=== PATIENT | male | born 1975 | race African-American/Black ===

== ENCOUNTER 2018-02-08 09:09 | Emergency (ER) | payer OTHER ==
[~2018-02-08] VITALS: Ht 167.6 cm; Wt 83.9 kg
[2018-02-08] MEDS ORDERED: ONDANSETRON PF 4 MG/2 ML VIAL. IV ONE (09:30)
[2018-02-08] MEDS ORDERED: MORPHINE SULFATE 4 MG/ML VIAL. IV ONE (09:30)
[2018-02-08] MEDS ORDERED: IV NORMAL SALINE 1000ML BAG 1,000 ML IV ONE (09:30)
[2018-02-08 09:40] VITALS: BP 139/86
[2018-02-08 09:40] LABS: BASO % 0 % (0-3); EOS # 0.1 x10^3/uL (0.0-0.7); EOS % 1 % (0-3); HEMATOCRIT 46.6 % (39.0-53.0); HEMOGLOBIN 16.3 g/dL (13.0-17.5); LYMPH # 0.6 x10^3/uL (1.0-4.8); LYMPH % 15 % (24-48); MEAN CORPUSCULAR HEMOGLOBIN 29 pg (25-35); MEAN CORPUSCULAR HGB CONC 35 g/dL (31-37); MEAN CORPUSCULAR VOLUME 82 fL (79-100); MONO # 0.6 x10^3/uL (0.0-1.1); MONO % 14 % (0-9); NEUT # 2.8 x10^3uL (1.8-7.7); NEUT % 69 % (31-73); PLATELET COUNT 207 x10^3/uL (140-400)
[2018-02-08 10:09] LABS: CALCIUM 8.6 mg/dL (8.5-10.1); CREATININE 1.4 mg/dL (0.7-1.3); GFR 67.9; POTASSIUM 3.3 mmol/L (3.5-5.1)
[2018-02-08 10:16] LABS: ALBUMIN 3.7 g/dL (3.4-5.0); DIRECT BILIRUBIN 0.3 mg/dL (0.0-0.2); TOTAL PROTEIN 7.2 g/dL (6.4-8.2)
[2018-02-08] MEDS ORDERED: IOHEXOL 300 MG/ML 100ML VIAL. IV ONE (10:30)
[2018-02-08] MEDS ORDERED: CONTRAST GIVEN. MC PRN (10:30)
[2018-02-08 10:45] LABS: BILIRUBIN,URINE SMALL (NEG); CLARITY,URINE CLEAR; COLOR,URINE YELLOW; NITRITE,URINE NEGATIVE (NEG); PH,URINE 5.5; PROTEIN,URINE NEGATIVE (NEG-TRACE); UROBILINOGEN,URINE 0.2 mg/dL (0.2 mg/dL)
[2018-02-08 10:55] LABS: BACTERIA,URINE 0 /HPF (0-FEW); RBC,URINE 0 /HPF (0-2); SQUAMOUS EPITHELIAL CELL,UR FEW /LPF; WBC,URINE OCC /HPF (0-4)
--- NOTE | 2018-02-08 11:24 | PHYS DOC ---
Past Medical History Past Medical History: No Pertinent History Additional Past Medical Histor: HERNIA SINCE CHILDHOOD WITH NO SURGICAL INTERVENTION Past Surgical History: No Surgical History Alcohol Use: None Drug Use: None Adult General Chief Complaint Chief Complaint: ABDOMINAL PAIN HPI HPI Patient is a 42 year old male who presents with abdominal pain. Patient began to have diffuse abdominal pain three days earlier after eating at a [employer] restaurant. Since that time, the patient has has persistent nausea but no emesis. Diffuse abdominal pain, primarily over the epigastric area. No fever or chills. No emesis. Denies diarrhea. Denies urinary symptoms. Review of Systems Review of Systems Constitutional: Denies fever or chills Eyes: Denies change in visual acuity HENT: Denies nasal congestion Respiratory: Denies cough Cardiovascular: No additional information not addressed in HPI GI: Denies emesis : Denies dysuria Musculoskeletal: Denies back pain Integument: Denies rash or skin lesions Neurologic: Denies headache Endocrine: Denies polyuria All other systems were reviewed and found to be within normal limits, except as documented in this note. Current Medications Current Medications Current Medications Medications (Trade) Dose Ordered Sig/Janell Start Time Stop Time Status Last Admin Dose Admin Info (CONTRAST GIVEN -- Rx MONITORING) 1 each PRN DAILY PRN 02/08/18 10:30 02/08/18 12:12 DC Iohexol (Omnipaque 300 Mg/ml) 75 ml 1X ONCE 02/08/18 10:30 02/08/18 10:31 DC 02/08/18 10:51 75 ML Morphine Sulfate (Morphine Sulfate) 4 mg 1X ONCE 02/08/18 09:30 02/08/18 09:31 DC 02/08/18 09:31 4 MG Ondansetron HCl (Zofran) 4 mg 1X ONCE 02/08/18 09:30 02/08/18 09:31 DC 02/08/18 09:31 4 MG Sodium Chloride 1,000 ml @ 1,000 mls/hr 1X ONCE 02/08/18 09:30 02/08/18 10:29 DC 02/08/18 09:31 1,000 MLS/HR Allergies Allergies Allergies Coded Allergies Type Severity Reaction Last Updated Verified No Known Drug Allergies 02/08/18 No Physical Exam Physical Exam Constitutional: Well developed, well nourished, no acute distress, non-toxic appearance HENT: Normocephalic, atraumatic, bilateral external ears normal, oropharynx moist Eyes: PERRLA, EOMI, conjunctiva normal Neck: Normal range of motion, no tenderness Cardiovascular:Heart rate regular rhythm, no murmur Lungs & Thorax: Bilateral breath sounds clear Abdomen: Bowel sounds normal, soft, no guarding or rebound. subjective TTP over epigastric area. Skin: Warm, dry, no erythema Back: No tenderness Extremities: No edema Neurologic: Alert and oriented X 3 Psychologic: Affect normal Current Patient Data Vital Signs Vital Signs Date Time Temp Pulse Resp B/P (MAP) Pulse Ox O2 Delivery O2 Flow Rate FiO2 02/08/18 09:40 97.7 95 20 139/86 (103) 98 Room Air 97.7 Lab Values Laboratory Tests Test 02/08/18 09:30 02/08/18 09:45 02/08/18 10:35 White Blood Count 4.0 x10^3/uL (4.0-11.0) Red Blood Count 5.70 x10^6/uL (4.30-5.70) Hemoglobin 16.3 g/dL (13.0-17.5) Hematocrit 46.6 % (39.0-53.0) Mean Corpuscular Volume 82 fL (79-100) Mean Corpuscular Hemoglobin 29 pg (25-35) Mean Corpuscular Hemoglobin Concent 35 g/dL (31-37) Red Cell Distribution Width 13.0 % (11.5-14.5) Platelet Count 207 x10^3/uL (140-400) Neutrophils (%) (Auto) 69 % (31-73) Lymphocytes (%) (Auto) 15 % (24-48) L Monocytes (%) (Auto) 14 % (0-9) H Eosinophils (%) (Auto) 1 % (0-3) Basophils (%) (Auto) 0 % (0-3) Neutrophils # (Auto) 2.8 x10^3uL (1.8-7.7) Lymphocytes # (Auto) 0.6 x10^3/uL (1.0-4.8) L Monocytes # (Auto) 0.6 x10^3/uL (0.0-1.1) Eosinophils # (Auto) 0.1 x10^3/uL (0.0-0.7) Basophils # (Auto) 0.0 x10^3/uL (0.0-0.2) Sodium Level 136 mmol/L (136-145) Potassium Level 3.3 mmol/L (3.5-5.1) L Chloride Level 101 mmol/L (98-107) Carbon Dioxide Level 25 mmol/L (21-32) Anion Gap 10 (6-14) Blood Urea Nitrogen 18 mg/dL (8-26) Creatinine 1.4 mg/dL (0.7-1.3) H Estimated GFR (Cockcroft-Gault) 67.9 Glucose Level 130 mg/dL (70-99) H Calcium Level 8.6 mg/dL (8.5-10.1) Total Bilirubin 1.0 mg/dL (0.2-1.0) Direct Bilirubin 0.3 mg/dL (0.0-0.2) H Aspartate Amino Transferase (AST) 19 U/L (15-37) Alanine Aminotransferase (ALT) 46 U/L (16-63) Alkaline Phosphatase 87 U/L (46-116) Total Protein 7.2 g/dL (6.4-8.2) Albumin 3.7 g/dL (3.4-5.0) Lipase 88 U/L (73-393) Urine Collection Type Unknown Urine Color Yellow Urine Clarity Clear Urine pH 5.5 Urine Specific [place] 1.025 Urine Protein Negative mg/dL (NEG-TRACE) Urine Glucose (UA) Negative mg/dL (NEG) Urine Ketones (Stick) 40 mg/dL (NEG) Urine Blood Negative (NEG) Urine Nitrite Negative (NEG) Urine Bilirubin Small (NEG) Urine Urobilinogen Dipstick 0.2 mg/dL (0.2 mg/dL) Urine Leukocyte Esterase Negative (NEG) Urine RBC 0 /HPF (0-2) Urine WBC Occ /HPF (0-4) Urine Squamous Epithelial Cells Few /LPF Urine Bacteria 0 /HPF (0-FEW) Urine Mucus Marked /LPF Laboratory Tests 02/08/18 09:30 Laboratory Tests 02/08/18 09:45 EKG EKG [] Radiology/Procedures Radiology/Procedures FINDINGS: The liver and spleen and pancreas and gallbladder are normal. No extra hepatic biliary ductal dilatation is seen. No adrenal mass is evident. Both kidneys are normal. No focal aneurysmal dilatation of the abdominal aorta is seen. No enlarged abdominal or pelvic lymphadenopathy is evident. Urinary bladder is not abnormally distended. The appendix is normal. The terminal ileum is normal. There is mild wall thickening of small bowel loops consistent with enteritis. No obstructive bowel pattern or transition point is evident. No free air fluid or mesenteric edema is evident. Small umbilical hernia is seen containing only fat. No lung base consolidation is evident. No osteolytic process is seen. IMPRESSION: Mild wall thickening of the small bowel consistent with enteritis. Course & Med Decision Making Course & Med Decision Making Pertinent Labs and Imaging studies reviewed. (See chart for details) Patient is seen and examined in the ER for abdominal pain. Standard abdominal pain workup ordered. Morphine/zofran for symptom control. Patient does have a large episode of emesis during the initial evaluation although he denies that he had been vomiting previously. Patient was examined for abdominal pain. His history of present illness seem like gastroenteritis. His CT scan did reveal some enteritis. The patient was feeling improved in the ER after he was given morphine and Zofran. He only required one dose of these medications to have complete symptom relief. His lab panel was unremarkable for acute findings. The patient was discharged to home. He was given some Reglan and Wheeler to use at home as needed. He was encouraged to come back to the ER for any new or worsening symptoms. Otherwise, follow up with his primary care physician. Holly Disclaimer Holly Disclaimer This electronic medical record was generated, in whole or in part, using a voice recognition dictation system. Departure Departure Referrals: NO PCP (PCP) Scripts Hydrocodone/Apap 5-325 (NORCO 5-325 TABLET) 1 Each Tablet 1-2 EACH PO PRN Q6HRS PRN for severe pain, #10 as needed for pain Prov: MARIA LUISA RETANA DO 02/08/18 Metoclopramide Hcl (REGLAN) 10 Mg Tablet 10 MG PO TID PRN for NAUSEA, #10 TAB 0 Refills Prov: MARIA LUISA RETANA DO 02/08/18 MARIA LUISA RETANA DO Feb 08, 2018 11:24
--- NOTE | 2018-02-08 11:39 | RAD ---
CT study of the abdomen and pelvis with contrast Clinical indications: Abdominal pain for one day. TECHNIQUE: After IV infusion of 75 cc of Omnipaque 300, helical CT scanning of the abdomen and pelvis was performed. No GI contrast was administered. This may decrease the sensitivity to detect GI tract pathology. PQRS compliance Statement One or more of the following individualized dose reduction techniques were utilized for this study: 1. Automated exposure control 2. Adjustment of the mA and/or kV according to patient size 3. Use of iterative reconstruction technique FINDINGS: The liver and spleen and pancreas and gallbladder are normal. No extra hepatic biliary ductal dilatation is seen. No adrenal mass is evident. Both kidneys are normal. No focal aneurysmal dilatation of the abdominal aorta is seen. No enlarged abdominal or pelvic lymphadenopathy is evident. Urinary bladder is not abnormally distended. The appendix is normal. The terminal ileum is normal. There is mild wall thickening of small bowel loops consistent with enteritis. No obstructive bowel pattern or transition point is evident. No free air fluid or mesenteric edema is evident. Small umbilical hernia is seen containing only fat. No lung base consolidation is evident. No osteolytic process is seen. IMPRESSION: Mild wall thickening of the small bowel consistent with enteritis. Electronically signed by: Braden Bustamante MD (02/08/2018 11:36 AM) [facility]
[2018-02-08] MEDS ORDERED: METO10TA81 PO (11:53)
[2018-02-08] MEDS ORDERED: HYDR-971 PO (11:53)
== END 2018-02-08 12:00 | disposition home or self-care (01) ==
LOC: ER 09:09
DX: R10.84 Generalized abdominal pain (principal); R11.0 Nausea
CPT/HCPCS: 36415; 74177; 80048; 80076; 81001; 83690; 85025; 96374; 96375; 99285; J2270; J2405; J7030; Q9967